=== PATIENT | male | born 1970 | race Caucasian/White ===

== ENCOUNTER 2023-11-25 08:48 | Emergency (ER) | payer OTHER ==
[~2023-11-25] VITALS: Ht 170.2 cm; Wt 88.6 kg
[2023-11-25 09:53] VITALS: TEMP 98.5
[2023-11-25] MEDS ORDERED: VALS160T2 PO (09:59)
[2023-11-25] MEDS ORDERED: ROSU10TA72 PO (09:59)
[2023-11-25] MEDS ORDERED: METF-81 PO (09:59)
[2023-11-25] MEDS: KETOROLAC TROMETHAMINE 60 MG/2 ML VIAL IM ONE (11:45)
[2023-11-25 12:30] VITALS: BP 149/91; PULSE 87; RESP 18
[2023-11-25] MEDS ORDERED: METH-659 PO (12:41)
[2023-11-25] MEDS ORDERED: IBUP-1492 PO (12:41)
== END 2023-11-25 12:53 | disposition home or self-care (01) ==
LOC: EMS 08:49
DX: S29.012A Strain of muscle and tendon of back wall of thorax, initial encounter (principal); S60.212A Contusion of left wrist, initial encounter; S60.211A Contusion of right wrist, initial encounter; E11.9 Type 2 diabetes mellitus without complications; I10 Essential (primary) hypertension; X58.XXXA Exposure to other specified factors, initial encounter; Y93.89 Activity, other specified; Y92.89 Other specified places as the place of occurrence of the external cause; Y99.8 Other external cause status
CPT/HCPCS: 99284; 82962; 73030; 73110 ×2; 96372; J1885